=== PATIENT | female | born 1975 | race Hispanic/Latino ===

== ENCOUNTER 2017-04-02 15:47 | Emergency (ER) | payer BC ==
[2017-04-02 15:47] VITALS: BMI 44.6
[2017-04-02 15:59] VITALS: TEMP 98.7
[2017-04-02] MEDS ORDERED: DiphenhydrAMINE 50 mg/ml Inj IVP STA (16:09)
--- NOTE | 2017-04-02 16:30 | ED PDOC ---
Arrival/HPI - General Chief Complaint: Abnormal Skin Integrity Time Seen by Provider: 04/02/17 16:01 Historian: Patient - History of Present Illness Narrative History of Present Illness (Text): 04/02/17 16:23 41yo female present with complaint of pruritic rash to her generalized body x 2weeks. States she was exposed to poison [place] 2weeks ago and has been seen in a clinic 3times for the rash. States she was injected with steroid 3times and given oral prednisone. Also taking OTC antihistamine with resolve of symptom. She denies SOB, drooling, chest pain, any other inciting factors. Past Medical History - Provider Review Nursing Documentation Reviewed: Yes - Infectious Disease Hx of Infectious Diseases: None - Tetanus Immunization Tetanus Immunization: Up to Date - Cardiac Hx Pacemaker: No - Pulmonary Hx Asthma: Yes - Neurological Hx Paralysis: No - HEENT Hx HEENT Disorder: No - Renal Hx Renal Disorder: No - Endocrine/Metabolic Hx Endocrine Disorders: No - Hematological/Oncological Hx Blood Transfusions: No - Integumentary Hx Dermatological Disorder: No - Musculoskeletal/Rheumatological Hx Musculoskeletal Disorders: No - Gastrointestinal Hx Gastroesophageal Reflux: Yes - Genitourinary/Gynecological Hx Genitourinary Disorders: No - Psychiatric Hx Emotional Abuse: No Hx Physical Abuse: No Hx Substance Use: No - Past Surgical History Past Surgical History: No Previous - Surgical History Hx Section: Yes - Anesthesia Hx Anesthesia: Yes Hx Anesthesia Reactions: Yes (chills;"FEELS COLD & WEIRD") Hx Malignant Hyperthermia: No - Suicidal Assessment Feels Threatened In Home Enviroment: No Family/Social History - Physician Review Nursing Documentation Reviewed: Yes Family/Social History: Unknown Family HX Smoking Status: Former Smoker Hx Alcohol Use: Yes (SOCIAL) Hx Substance Use: No Hx Substance Use Treatment: No Allergies/Home Meds Allergies/Adverse Reactions: Allergies No Known Allergies Allergy (Verified 04/02/17 15:59) Review of Systems - Physician Review All systems were reviewed & negative as marked: Yes - Review of Systems Constitutional: Normal Eyes: Normal ENT: Normal Respiratory: Normal Cardiovascular: Normal Gastrointestinal: Normal Genitourinary Female: Normal Musculoskeletal: Normal Skin: Rash, Pruritis Neurological: Normal Endocrine: Normal Hemo/Lymphatic: Normal Psychiatric: Normal Physical Exam Vital Signs Reviewed: Yes Vital Signs Temp Pulse Resp BP Pulse Ox 04/02/17 17:40 80 18 126/80 98 04/02/17 15:53 98.7 F 102 H 20 129/85 95 Temperature: Afebrile Blood Pressure: Normal Pulse: Regular Respiratory Rate: Normal Appearance: Positive for: Well-Appearing, Non-Toxic, Comfortable Pain Distress: None Mental Status: Positive for: Alert and Oriented X 3 - Systems Exam Head: Present: Atraumatic, Normocephalic Pupils: Present: PERRL Extroacular Muscles: Present: EOMI Conjunctiva: Present: Normal Mouth: Present: Moist Mucous Membranes Neck: Present: Normal Range of Motion Respiratory/Chest: Present: Clear to Auscultation, Good Air Exchange. No: Respiratory Distress, Accessory Muscle Use Cardiovascular: Present: Regular Rate and Rhythm, Normal S1, S2. No: Murmurs Abdomen: Present: Normal Bowel Sounds. No: Tenderness, Distention, Peritoneal Signs Back: Present: Normal Inspection Upper Extremity: Present: Normal Inspection. No: Cyanosis, Edema Lower Extremity: Present: Normal Inspection. No: Edema Neurological: Present: GCS=15, CN II-XII Intact, Speech Normal Skin: Present: Warm, Dry, Rashes (Generalized erythematous hives noted on face , trunk and extremities), Normal Color Psychiatric: Present: Alert, Oriented x 3, Normal Insight, Normal Concentration Medical Decision Making ED Course and Treatment: 04/02/17 18:06 Pt presented with pruritic hives in ED. On re evaluation s/p medication patient' s rash improved significantly. She was not comfortable and in no distress. She already have Prednisone at home , she was [facility] with [facility] and strongly advised to f/u with a Children[employer] Literature Professor.slurry control tender. TRT ED for any new or worsening symptoms. - Medication Orders Current Medication Orders: Discontinued Medications Diphenhydramine HCl (Benadryl) 25 mg IVP STAT STA Stop: 04/02/17 16:10 Last Admin: 04/02/17 17:04 Dose: 25 mg Famotidine (Pepcid) 20 mg IVP STAT STA Stop: 04/02/17 16:10 Last Admin: 04/02/17 17:04 Dose: 20 mg Methylprednisolone (Solu-Medrol) 125 mg IVP STAT STA Stop: 04/02/17 16:10 Last Admin: 04/02/17 17:04 Dose: 125 mg Disposition/Present on Arrival - Present on Arrival Any Indicators Present on Arrival: No History of DVT/PE: No History of Uncontrolled Diabetes: No Urinary Catheter: No History of Decub. Ulcer: No History Surgical Site Infection Following: None - Disposition Have Diagnosis and Disposition been Completed?: Yes Diagnosis: Allergic reaction Disposition: HOME/ ROUTINE Disposition Time: 17:50 Patient Plan: Discharge Patient Problems: Current Active Problems Problem Status Onset Allergic reaction Acute Condition: STABLE Discharge Instructions (ExitCare): Urticaria (ED) Additional Instructions: Follow up with a Children[employer]S Literature Professor/Binding Machine Operator Return to ED for any new or worsening symptoms Prescriptions: Levocetirizine Dihydrochloride [Xyzal] 5 mg PO DAILY #10 tablet Referrals: Bg Brunson MD [Primary Care Provider] - Follow up with primary Roxanne Ivey MD [Staff Provider] - Follow up with primary
[2017-04-02 17:41] VITALS: BP 126/80; PULSE 80; RESP 18; O2SAT 98
== END 2017-04-02 18:13 | disposition home or self-care (01) ==
LOC: ED 15:47
DX: L50.0 Allergic urticaria (principal)
CPT/HCPCS: 96374; 96375; 99282; J1200; J2930